=== PATIENT | male | born 1980 | race Caucasian/White ===

== ENCOUNTER 2017-01-28 19:36 | Emergency (ER) | payer BC ==
[2017-01-28 19:57] VITALS: BP 114/71
--- NOTE | 2017-01-28 21:26 | RAD ---
INDICATION: Hematuria, right lower quadrant abdominal pain. COMPARISON: There are no prior studies available for comparison. TECHNIQUE: A CT scan of the abdomen and pelvis was performed without intravenous or oral contrast. Contiguous axial sections were obtained from the lung bases through the symphysis pubis. Images were reconstructed in the coronal and sagittal planes. FINDINGS: The lung bases are clear. No pleural effusion is present. The liver is normal in size without significant focal abnormality on this noncontrast study. No calcific gallstones are seen. The spleen is enlarged spanning 14.9 cm craniocaudad. No focal abnormality is seen. The pancreas appears to be within normal limits. The adrenal glands and kidneys are normal in size. No renal calculi or hydronephrosis is seen. The aorta is normal in caliber without significant calcific plaque. No significant enlarged retroperitoneal lymph nodes are seen. The stomach, small and large bowel appear nondistended. There is a large appendicolith present measuring 1.1 cm in transverse dimension. The appendix is dilated with a thickened oconnell. There is stranding in the surrounding mesenteric fat. These findings would be consistent with acute appendicitis. There is a moderate to large amount retained stool present within the colon. There is no evidence for diverticulitis or colitis. No free intraperitoneal air or fluid is seen. No significant focal osseous abnormality is seen. IMPRESSION: 1. FINDINGS CONSISTENT WITH ACUTE APPENDICITIS. 2. MILD SPLENOMEGALY.
[2017-01-28] MEDS ORDERED: Morphine INJ* 2 MG/ML 1 ML SYRINGE IV ONE (21:48)
[2017-01-28] MEDS ORDERED: Ondansetron INJ* 2 MG/ML VIAL IV ONE (21:49)
[2017-01-28] MEDS ORDERED: NS 0.9% 1000 ML* 1,000 ML BOLUS SCH (22:00)
--- NOTE | 2017-01-28 22:13 | UC ---
Rosa Swift Janilya, scribed for Chandni Rutledge MD on 01/28/17 at 2019 . Abdominal Pain Male HPI - HPI Summary HPI Summary: A 36 y/o male came in to [facility] presenting w/ a gradual onset of intermittent abd pain for a few days starting 01/25/2017. However, for the past 12 hours , the pain has worsened starting at 1400. Pt states the pain is concentrated in the epigastric and suprapubic regions. Pt also reports back pain. Pt denies urinary Sx. A few weeks ago, pt had tenderness in RLQ. Pt also states he has been vomiting. His doctor scanned his gallbladder which was normal. However, pt recovered and went on a trip to [place]. - History of Current Complaint Chief Complaint: EDAbdPain Stated Complaint: ABD PAIN Hx Obtained From: Patient Onset/Duration: Gradual Onset, Lasting Days, Still Present Timing: Intermittent Episodes Lasting: - days Severity Initially: Moderate Severity Currently: Moderate Pain Intensity: 3 Pain Scale Used: 0-10 Numeric Location: Epigastric, Suprapubic Radiates: Yes Radiates to: Back Character: Sharp Aggravating Factor(s):: Nothing Alleviating Factor(s): Nothing Associated Signs And Symptoms: Positive: Back Pain. Negative: Urinary Symptoms , Vomiting, Diarrhea - Risk Factors Testicular Torsion: Negative Cardiac Risk Factors: Negative - Allergies/Home Medications Allergies/Adverse Reactions: Allergies Allergy/AdvReac Type Severity Reaction Status Date / Time No Known Allergies Allergy Verified 10/18/15 21:14 PMH/Surg Hx/FS Hx/Imm Hx Previously Healthy: Yes Endocrine History Of: Denies: Diabetes, Thyroid Disease Cardiovascular History Of: Denies: Cardiac Disorders, Hypertension Respiratory History Of: Denies: COPD, Asthma GI/ History Of: Denies: Ulcer - Surgical History Surgical History: Yes Surgery Procedure, Year, and Place: wisdom teeth extraction - Family History Known Family History: Positive: Cardiac Disease - father, Hypertension - mother and father - Social History Occupation: Employed Full-time Lives: With Family Alcohol Use: Occasionally Substance Use Type: None Smoking Status (MU): Never Smoked Tobacco Review of Systems Constitutional: Negative Skin: Negative Eyes: Negative ENT: Negative Respiratory: Negative Cardiovascular: Negative Gastrointestinal: Negative - pt denies vomiting or diarrhea, Abdominal Pain Genitourinary: Negative Motor: Negative Neurovascular: Negative Musculoskeletal: Arthralgia - pt reports back pain, Myalgia - in the back Neurological: Negative Psychological: Negative All Other Systems Reviewed And Are Negative: Yes Physical Exam Triage Information Reviewed: Yes Appearance: Well-Appearing, Well-Nourished, Pain Distress Vital Signs: Initial Vital Signs Temp 98.5 F 01/28/17 19:49 Pulse 78 01/28/17 19:49 Resp 18 01/28/17 19:49 BP 114/71 01/28/17 19:49 Pulse Ox 98 01/28/17 19:49 Vital Signs Reviewed: Yes Eyes: Positive: Conjunctiva Clear ENT: Positive: Normal ENT inspection, Hearing grossly normal. Negative: Muffled /hoarse voice Neck: Positive: Supple Respiratory: Positive: Lungs clear, Normal breath sounds, No respiratory distress Cardiovascular: Positive: RRR, No Murmur, Pulses Normal, Brisk Capillary Refill Abdomen Description: Positive: Guarding, McBurney's Point Tenderness. Negative : CVA Tenderness (R), CVA Tenderness (L), Distended Bowel Sounds: Positive: Present Musculoskeletal: Positive: Strength Intact, ROM Intact Neurological: Positive: Alert, Muscle Tone Normal Psychological Exam: Normal Skin Exam: Normal Diagnostics - Radiology abd/pel CT Xray Interpretation: Positive (See Comments) - IMPRESSION: 1. FINDINGS CONSISTENT WITH ACUTE APPENDICITIS. 2. MILD SPLENOMEGALY. Radiology Interpretation Completed By: Radiologist Re-Evaluation - Re-Evaluation First Eval Re-Evaluation Time: 20:59 Change: Unchanged Comment: Pt is informed about urinalysis results. Pt has traces of blood in his urine. Consequently, pt will have a CT of his abd/pel to eval for poss kidney stone and RLQ pain. Abd Pain Male Course/Dx - Course Course Of Treatment: Urinalysis showed traces of blood in urine. Consequently, a CT of abd/pel was done. CT showed acute appendicitis. Pt will be transferred to [facility]. Pt was advised to be NPO. - Differential Dx/Clinical Impression Differential Diagnosis/HQI/PQRI: Appendicitis, Gall Bladder Disease, Ureteral Stone, Urinary Tract Infection Provider Diagnoses: acute appendicitis - Physician Notification/Consults Discussed Patient Care With: Dr. Lewis (ED physican) at 2145: discussed pt care and agrees to see pt at [facility] when transferred. BOBBY notified at 2149. Discharge - Discharge Plan Condition: Stable Disposition: TRANS HIGHER LVL OF CARE FAC Discharge Disposition Comment: [facility] Referrals: Lexi Porter MD [Primary Care Provider] - 2 Days The documentation as recorded by the Rosa baker Janilya accurately reflects the service I personally performed and the decisions made by me, Chandni Rutledge MD.
== END 2017-01-28 22:14 | disposition short-term general hospital (02) ==
LOC: UCEAST 19:36
DX: K35.80 Unspecified acute appendicitis (principal); R16.1 Splenomegaly, not elsewhere classified
CPT/HCPCS: 74176; 81003; 96365; 99213; G0463

== ENCOUNTER 2017-01-28 22:26 | Observation (INO) | payer BC ==
[2017-01-28] MEDS ORDERED: NS 0.9% 1000 ML* 1,000 ML IV ONE (22:29)
[2017-01-28 22:41] LABS: Hematocrit 47 % (42-52); Mean Corpuscular HGB Conc 34 g/dl (31-36); Mean Corpuscular Hemoglobin 32 pg (27-31); Mean Corpuscular Volume 93 fL (80-94); Mean Platelet Volume 10 um3 (7.4-10.4); Red Blood Count 5.05 10^6/ul (4.0-5.4); Red Cell Distribution Width 13 % (10.5-15); White Blood Count 10.8 10^3/ul (3.5-10.8)
[2017-01-28 22:56] LABS: Albumin 4.3 g/dL (3.2-5.2); BUN/Creatinine Ratio 14.3 (8-20); C Reactive Protein 11.29 mg/L (< 5.00); Calcium 9.4 mg/dL (8.6-10.3); EGFR African American 103.4 (>60); EGFR Non-African American 80.4 (>60); Globulin 2.9 g/dL (2-4); Magnesium 2.1 mg/dL (1.9-2.7); Potassium 3.7 mmol/L (3.5-5.0); Total Bilirubin 0.6 mg/dL (0.2-1.0); Total Protein 7.2 g/dL (6.4-8.9)
--- NOTE | 2017-01-28 22:59 | ED ---
Elisabeth Swift Matthew, scribed for Romel Lewis MD on 01/28/17 at 2232 . Abdominal Pain/Male - HPI Summary HPI Summary: A 36 y/o male presents to the ED with gradually worsening, intermittent, diffuse abdominal since 01/25/17, which worsened at 14:00 today to constant pain. The pain is currently rated 3/10 in severity. Associated symptoms include back pain. The patient denies urinary symptoms, vomiting, and diarrhea. A few weeks ago the patient c/o of RLQ pain with assoicated vomiting. He went to his PCP at that time, where a gallbladder scanned was performed and returned normal. Afterwards, the patient was able to travel to [place]. - History of Current Complaint Stated Complaint: ABD PAIN Hx Obtained From: Patient Onset/Duration: Gradual Onset, Lasting Days, Still Present Timing: Constant - since 14:00, Intermittent Severity Initially: Mild Severity Currently: Mild Pain Intensity: 3 Pain Scale Used: 0-10 Numeric Location: Diffuse Radiates: No Character: Other: - Aching Aggravating Factor(s): Movement Alleviating Factor(s): Nothing Associated Signs And Symptoms: Positive: Back Pain. Negative: Urinary Symptoms , Nausea, Vomiting, Diarrhea - Allergies/Home Medications Allergies/Adverse Reactions: Allergies Allergy/AdvReac Type Severity Reaction Status Date / Time No Known Allergies Allergy Verified 10/18/15 21:14 PMH/Surg Hx/FS Hx/Imm Hx Endocrine/Hematology History: Denies: Hx Diabetes, Hx Thyroid Disease Cardiovascular History: Denies: Hx Hypertension Respiratory History: Denies: Hx Asthma, Hx Chronic Obstructive Pulmonary Disease (COPD) GI History: Denies: Hx Ulcer - Surgical History Surgery Procedure, Year, and Place: wisdom teeth extraction Infectious Disease History: Denies: Hx Hepatitis, Hx Human Immunodeficiency Virus (HIV), History Other Infectious Disease - Family History Known Family History: Positive: Cardiac Disease - father, Hypertension - mother and father - Social History Alcohol Use: Occasionally Substance Use Type: Reports: None Smoking Status (MU): Never Smoked Tobacco Review of Systems Constitutional: Negative Eyes: Negative ENT: Negative Cardiovascular: Negative Respiratory: Negative Positive: Abdominal Pain - diffuse. Negative: Vomiting, Diarrhea, Nausea Positive: no symptoms reported Positive: Myalgia - back pain Skin: Negative Neurological: Negative Psychological: Normal All Other Systems Reviewed And Are Negative: Yes Physical Exam Triage Information Reviewed: Yes Vital Signs On Initial Exam: Initial Vitals Temp Pulse Resp BP Pulse Ox 98.7 F 80 16 113/70 96 01/28/17 22:35 01/28/17 22:35 01/28/17 22:35 01/28/17 22:35 01/28/17 22:35 Vital Signs Reviewed: Yes Appearance: Positive: Pain Distress - milddiscomfort, Thin Skin: Positive: Warm Head/Face: Positive: Normal Head/Face Inspection Eyes: Positive: ADDISON ENT: Positive: Hearing grossly normal Neck: Positive: Supple Respiratory/Lung Sounds: Positive: Clear to Auscultation, Breath Sounds Present Cardiovascular: Positive: RRR Abdomen Description: Positive: Soft, Guarding, McBurney's Point Tenderness. Negative: No Organomegaly, Distended Bowel Sounds: Positive: Present Musculoskeletal: Positive: Strength/ROM Intact Neurological: Positive: Alert, Oriented to Person Place, Time Psychiatric: Positive: Affect/Mood Appropriate Diagnostics - Vital Signs Vital Signs Temp Pulse Resp BP Pulse Ox 01/28/17 22:38 98.7 F 80 16 113/70 96 01/28/17 22:35 98.7 F 80 16 113/70 96 - Laboratory Lab Results: Lab Results 01/28/17 01/28/17 01/28/17 Range/Units 22:00 22:00 22:00 WBC 10.8 (3.5-10.8) 10^3/ul RBC 5.05 (4.0-5.4) 10^6/ul Hgb 16.0 (14.0-18.0) g/dl Hct 47 (42-52) % MCV 93 (80-94) fL MCH 32 H (27-31) pg MCHC 34 (31-36) g/dl RDW 13 (10.5-15) % Plt Count 173 (150-450) 10^3/ul MPV 10 (7.4-10.4) um3 Neut % (Auto) 66.7 (38-83) % Lymph % (Auto) 23.9 L (25-47) % [place] % (Auto) 8.0 (1-9) % Eos % (Auto) 1.0 (0-6) % Baso % (Auto) 0.4 (0-2) % Absolute Neuts (auto) 7.2 (1.5-7.7) 10^3/ul Absolute Lymphs (auto) 2.6 (1.0-4.8) 10^3/ul Absolute Monos (auto) 0.9 H (0-0.8) 10^3/ul Absolute Eos (auto) 0.1 (0-0.6) 10^3/ul Absolute Basos (auto) 0 (0-0.2) 10^3/ul Absolute Nucleated RBC 0.01 10^3/ul Nucleated RBC % 0.1 Sodium 137 (133-145) mmol/L Potassium 3.7 (3.5-5.0) mmol/L Chloride 100 L (101-111) mmol/L Carbon Dioxide 32 (22-32) mmol/L Anion Gap 5 (2-11) mmol/L BUN 15 (6-24) mg/dL Creatinine 1.05 (0.67-1.17) mg/dL Est GFR ( Amer) 103.4 (>60) Est GFR (Non-Af Amer) 80.4 (>60) BUN/Creatinine Ratio 14.3 (8-20) Glucose 96 (70-100) mg/dL Lactic Acid 0.7 (0.5-2.0) mmol/L Calcium 9.4 (8.6-10.3) mg/dL Magnesium 2.1 (1.9-2.7) mg/dL Total Bilirubin 0.60 (0.2-1.0) mg/dL AST 18 (13-39) U/L ALT 15 (7-52) U/L Alkaline Phosphatase 62 (34-104) U/L C-Reactive Protein 11.29 H (< 5.00) mg/L Total Protein 7.2 (6.4-8.9) g/dL Albumin 4.3 (3.2-5.2) g/dL Globulin 2.9 (2-4) g/dL Albumin/Globulin Ratio 1.5 (1-3) Lipase 16 (11.0-82.0) U/L Result Diagrams: 01/28/17 22:00 01/28/17 22:00 Lab Statement: Any lab studies that have been ordered have been reviewed, and results considered in the medical decision making process. Abdominal Pain Fem Course/Dx - Course Assessment/Plan: A 36 y/o male presents to the ED with gradually worsening, intermittent, diffuse abdominal since 01/25/17, which worsened at 14:00 today to constant pain. The pain is currently rated 3/10 in severity. Associated symptoms include back pain. The patient denies urinary symptoms, vomiting, and diarrhea. Labs were reviewed. CT from [facility] showed acute appendicitis. Discussed the case with Dr. Briggs who will admit the patient into her care. - Diagnoses Provider Diagnoses: Appendicitis - Provider Notifications Discussed Care Of Patient With: Dr. Briggs (Surgery) at 22:38 -- Notified of patient's history and will come to see the patient. Instructed by Provider To: Admit As Inpatient Discharge - Discharge Plan Condition: Fair Disposition: ADMITTED TO [facility] The documentation as recorded by the Elisabeth baker Matthew accurately reflects the service I personally performed and the decisions made by me, Romel Lewis MD.
--- NOTE | 2017-01-28 23:26 | HP ---
H&P (Free Text) History and Physical: Surgery H & P Asked by Dr. Lewis to evaluate a pt. with abd. pain and a CT suggestive of appendicitis. Mr. Callahan is a 36 y.o. male who reports he began to feel a "discomfort" in the abd. 3 days ago. This waxed and waned till tonight when he felt it more specifically in the low abd. and felt it with movement. He denies fever, nausea, vomiting, diarrhea, or constipation. He had some loss of appetite tonight. He denies dysuria. He went to [facility] and had a CT looking for an explanation of blood in the urine and appendicitis was found. PMHx: denies Meds: none NKDA ROS: neg. FH: colon CA, pancreatic CA SH: neg. tob., occ EtOH, neg. IVDA PE: general: WDWN male in NAD Vital Signs 01/28/17 01/28/17 22:35 22:38 Temperature 98.7 F 98.7 F Pulse Rate 80 80 Respiratory 16 16 Rate Blood Pressure 113/70 113/70 (mmHg) O2 Sat by Pulse 96 96 Oximetry HEENT: Anicteric sclerae, moist oral mucosa, neg. cervical adenopathy lungs: clear to ausc. heart: reg. abd: good BS, soft, tender in RLQ to deep palpation, no guarding, rebound. Neg. CVAT ext: trace edema Laboratory Results - last 24 hr 01/28/17 01/28/17 01/28/17 22:00 22:00 22:00 WBC 10.8 RBC 5.05 Hgb 16.0 Hct 47 MCV 93 MCH 32 H MCHC 34 RDW 13 Plt Count 173 MPV 10 Neut % (Auto) 66.7 Lymph % (Auto) 23.9 L [place] % (Auto) 8.0 Eos % (Auto) 1.0 Baso % (Auto) 0.4 Absolute Neuts (auto) 7.2 Absolute Lymphs (auto) 2.6 Absolute Monos (auto) 0.9 H Absolute Eos (auto) 0.1 Absolute Basos (auto) 0 Absolute Nucleated RBC 0.01 Nucleated RBC % 0.1 Sodium 137 Potassium 3.7 Chloride 100 L Carbon Dioxide 32 Anion Gap 5 BUN 15 Creatinine 1.05 Est GFR ( Amer) 103.4 Est GFR (Non-Af Amer) 80.4 BUN/Creatinine Ratio 14.3 Glucose 96 Lactic Acid 0.7 Calcium 9.4 Magnesium 2.1 Total Bilirubin 0.60 AST 18 ALT 15 Alkaline Phosphatase 62 C-Reactive Protein 11.29 H Total Protein 7.2 Albumin 4.3 Globulin 2.9 Albumin/Globulin Ratio 1.5 Lipase 16 A/P: Probable appendicitis. will admit, hydrate, provide abx, and plan OR in AM for laparoscopic appendectomy. CLFoster
[2017-01-28] MEDS ORDERED: Ondansetron INJ* 2 MG/ML VIAL IV PRN (23:28)
[2017-01-28] MEDS ORDERED: Morphine INJ* 2 MG/ML 1 ML SYRINGE IV PRN (23:29)
[2017-01-29] MEDS ORDERED: Piperac/Tazob 3.375 gm in NS* 3.375 GM/100 ML BAG IVPB ONE
[2017-01-29] MEDS: D5W 1/2 NS KCl 20 Meq 1000 ML* 1,000 ML IV SCH ×4 (00:46→22:26)
[2017-01-29] MEDS ORDERED: Morphine INJ* 2 MG/ML 1 ML SYRINGE ONE (04:55)
[2017-01-29] MEDS ORDERED: Morphine INJ* 2 MG/ML 1 ML SYRINGE IV PRN (05:37)
[2017-01-29] MEDS: Piperac/Tazob 3.375 gm in NS* 3.375 GM/100 ML BAG IVPB SCH ×3 (05:52→19:53)
--- NOTE | 2017-01-29 09:10 | PN ---
Progress Note - Progress Note SOAP: Subjective: Comfortable with some pain meds Still with persistent right lower abdominal pain Objective: Temp Pulse Resp BP Pulse Ox 98.0 F 74 16 121/76 96 01/29/17 07:50 01/29/17 07:50 01/29/17 07:52 01/29/17 07:50 01/29/17 07:50 PEX: Comfortable Lungs are clear Abd is soft and non-distended. No prior incisions. No hernias. Bowel sounds are present but decreased throughout. There is tenderness in the right lower quadrant with some guarding. No peritoneal signs or masses. Labs and CT reviewed-nl WBC, CT shows a large appendicolith with dilated appendix with some surrounding inflammation consistent with appendicitis. No other acute findings noted Assessment: Acute appendicitis History reviewed Plan: Laparoscopic appendectomy today. I discussed procedure the history, physical exam and CT scan results and I recommend a laparoscopic appendectomy today. The procedure was discussed with the patient and the risks of, but not limited to, of bleeding, infection, abscess, injury to peritoneal and retroperitoneal organs, the possibility of an open procedure, risks of anesthesia were all explained. In addition, hospital stay and recovery times were discussed. We also discussed non-operative management with IV and oral antibiotics and I do not recommend this approach with the large appendicolith and dilated appendix and he agrees. Will proceed later this morning.
[2017-01-29] MEDS ORDERED: Bupivacaine 0.25% EPI 200,000* 30 ML SDV ONE (10:35)
[2017-01-29] MEDS ORDERED: Midazolam* 1 MG/ML 2 ML VIAL (2 MG) ONE (10:37)
[2017-01-29] MEDS ORDERED: Lidocaine 2% PF * 5 ML VIAL ONE (10:37)
[2017-01-29] MEDS ORDERED: fentaNYL* 50 MCG/ML 2 ML VIAL (100 MCG VIAL) ONE ×4 (10:37→13:17)
[2017-01-29] MEDS ORDERED: Propofol* 10 MG/ML 20 ML BTL IV PUSH ONE (10:37)
[2017-01-29] MEDS ORDERED: Rocuronium* 10 MG/ML VIAL ONE ×2 (10:38→12:15)
[2017-01-29] MEDS ORDERED: Neostigmine Methylsulfate* 2 MG/2 ML SYRINGE ONE (11:35)
[2017-01-29] MEDS ORDERED: Glycopyrrolate IV* 0.2 MG/ML 1 ML VIAL ONE (11:35)
[2017-01-29] MEDS: fentaNYL* 50 MCG/ML 2 ML VIAL (100 MCG VIAL) IV PRN ×2 (13:19→13:42)
--- NOTE | 2017-01-29 13:26 | SURGPN ---
Brief Operative Note - Surgery Procedures: OPERATIVE REPORT PRE-OP: Acute appendicitis POST-OP: Same PROCEDURE: Laparoscopic appendectomy SURGEON: MD Rodrigo ANESTHESIA: General/local Dr. Troncoso ASST: none IVF: 1 liter of crystalloid EBL: min SPECIMEN: Appendix DRAIN: none WOUND CLASS: 3 COMPLICATIONS: none TO PACU
[2017-01-29] MEDS ORDERED: oxyCODONE/Acetamin 5/325 MG* TAB PO PRN ×2 (13:27→13:29)
[2017-01-29] MEDS ORDERED: oxyCODONE TAB* 5 MG TAB PO PRN (13:49)
[2017-01-29] MEDS ORDERED: Ketorolac INJ* 30 MG/ML 1 ML VIAL ONE (14:15)
[2017-01-29] MEDS: Ketorolac INJ* 30 MG/ML 1 ML VIAL IV PUSH PRN (14:17)
[2017-01-29] MEDS: Heparin VIAL(*) 5000 UNITS/ML VIAL (FIVE THOUSAND) SUBCUT SCH ×2 (14:56→22:22)
[2017-01-29] MEDS ORDERED: Acetaminophen TAB* 325 MG ONE (17:04)
[2017-01-29] MEDS ORDERED: Acetaminophen TAB* 325 MG PO PRN (17:07)
--- NOTE | 2017-01-30 01:18 | OP ---
DATE OF OPERATION: 01/29/17 - ROOM #333 DATE OF : 82 SURGEON: Venu Wallace MD PHYSICIAN GENERAL PRACTICE: None. ANESTHESIOLOGIST: Dr. Galindo. ANESTHESIA: General with local. PRE-OP DIAGNOSIS: Acute appendicitis. POST-OP DIAGNOSIS: Acute appendicitis. OPERATIVE PROCEDURE: Laparoscopic appendectomy. ESTIMATED BLOOD LOSS: Minimal. WOUND CLASSIFICATION: Three. COMPLICATIONS: None. DRAINS: None. SPECIMEN: Appendix. FINDINGS: The patient had a rather large appendicolith within the lumen of the appendix and chronic inflammatory response that was adherent to the retroperitoneum. No evidence of perforation or free intraabdominal fluid. BRIEF HISTORY: Mr. Howard Callahan is a 36-year-old gentleman who presented to the emergency room last night acutely after being seen [facility]. He had had some abdominal pain since the weekend in the right lower quadrant and was associated with some anorexia with no nausea, vomiting, fevers, shakes or chills. He had tenderness in the right lower quadrant. He also gives a history of over the last several weeks having intermittent discomfort in the right mid and lower abdomen. This was severe enough almost a month ago that he did see his primary care provider, Dr. Porter, who underwent labs and an ultrasound of the gallbladder which was unremarkable. He subsequently went to [place] on family vacation, did fine and according to his only intermittently since he has been back had complained of some mild discomfort until the past weekend. In the emergency room, he was noted to have a normal white blood cell count with no fever. He had some mild tenderness in the right lower quadrant without peritoneal irritation. I did review the CT scan of the abdomen and pelvis and this does show findings consistent with acute appendicitis with a very large appendicolith which is calcified with a distended distal appendix with appendiceal inflammation. There was no evidence of abscess, or extraluminal fluid. After reviewing the history, physical exam and the workup, I recommend that he undergo an appendectomy. I discussed the procedure with the patient and his and the risks are but not limited to bleeding, infection, intraabdominal abscess formation, injury to peritoneal and retroperitoneal structures, possibility of an open procedure, risk of general anesthesia, recovery times and hospital stays were all discussed. In addition, possibility of an open procedure was explained. We also discussed nonoperative management with IV antibiotics. However, in this situation with a large appendicolith and the possible chronic nature of the inflammation, I did not recommend this approach. DESCRIPTION OF PROCEDURE: Written informed consent was obtained, IV antibiotics were administered and the abdomen was marked with indelible ink. The patient was taken to the operating room, placed in the supine position. Sequential compression devices and a warming blanket were applied. Anesthesia was administered. The abdomen was prepped and draped in the usual sterile fashion. Time-out verification was completed. Initially, a small transverse incision was made just above the umbilicus to midline, and the peritoneal cavity was entered under direct vision. A 12-mm blunt port was inserted and the abdomen was insufflated to 15 mmHg. Under direct vision, a 5 mm port was placed in the left lower abdominal wall and a second 5 mm port was placed in the suprapubic position. Upon entering the abdomen, there was no evidence of peritonitis, fluid or generalized inflammation. Terminal ileum appeared to be normal as well as the cecum. The patient was placed in Trendelenburg position and rolled to the left. We were able to displace the terminal ileum out of the left lower quadrant and here there was an inflamed, firm, almost gangrenous appearing mass adherent to the retro-peritoneum and laterally which was quite firm and difficult to grasp with the instruments. I was able to lift this up bluntly and using the suction sba business development officer, bluntly peeled what I felt was the appendix off the retroperitoneum and lateral peritoneal attachments working distally to proximally. It appeared that the appendix had curled up underneath itself and once again, I was very distended and firm and that was consistent with the findings on CT scan where there was obviously a very large appendicolith. I was able to then deliver this up into a better view and identify the very edematous and indurated mesentery and this was taken sequentially from distal appendix to more proximal appendix using the LigaSure device and hemostasis was assured in this manner. As we dissected more proximal, it was apparent that this terminal ileum was somewhat adherent and this was taken down also with a LigaSure device. I was able to identify the base of the cecum and the appendix at this point appeared to be more viable, although it was still somewhat dilated and by mobilizing some of the lateral attachments in the cecum using sharp dissection, I was able to deliver up the base of the cecum over the appendix at the appendiceal junction and this appeared to be really without evidence of inflammation, soft and supple. With this in mind, I placed a thomas load of a 60 mm stapler well down under the cecum to assure myself that this was all healthy normal tissue which was fired. The appendix was then removed. The staple line was intact without bleeding and appeared to be with good viable tissue. The appendix was placed in an EndoCatch bag. It was difficult due to its size and induration to remove through the small umbilical incision. I did pull this out in pieces from the bag as I did not want to make the incision bigger. Once this was complete, the surgical site was evaluated. Hemostasis was assured. Staple line was intact. I used a large amount of irrigation in the right lower quadrant and pelvis until clear. I do not feel the drain was indicated. All ports removed under the direct vision of the camera. The umbilical fascia was closed with interrupted 0 Polysorb suture. Skin at all 3 incisions was approximated with subcuticular 4-0 Polysorb suture. Steri-Strips were applied. The patient tolerated the procedure well and was taken to recovery room in stable condition. CC: [facility]; Dr. Lexi Porter * [id number]/[facility] #: [id number] NIKIA
[2017-01-30] MEDS: Piperac/Tazob 3.375 gm in NS* 3.375 GM/100 ML BAG IVPB SCH ×2 (03:57→12:02)
[2017-01-30] MEDS: D5W 1/2 NS KCl 20 Meq 1000 ML* 1,000 ML IV SCH (04:49)
[2017-01-30] MEDS: Heparin VIAL(*) 5000 UNITS/ML VIAL (FIVE THOUSAND) SUBCUT SCH ×2 (06:08→13:35)
--- NOTE | 2017-01-30 08:38 | PN ---
Progress Note - Progress Note SOAP: Subjective: Had some nausea last night-vomited once but feels better this morning and has appetite. No flatus Pain adequately controlled. Objective: Temp Pulse Resp BP Pulse Ox 98.2 F 78 18 117/86 96 01/30/17 07:29 01/30/17 07:29 01/30/17 07:53 01/30/17 07:29 01/30/17 07:53 Intake & Output 01/28/17 01/29/17 01/30/17 01/31/17 06:59 06:59 06:59 06:59 Intake Total 2165 3499 Output Total 2725 900 Balance 2165 774 -900 Weight 216 lb Intake: IV Fluids 2165 2759 ABX - ZOSYN 71 D5W 1/2 NS 20 meq KCL 994 199 LR 600 IVPB 100 Oral 0 640 Output: Urine 2325 900 Emesis 400 Other: # Bowel Movements 0 PEX: Comfortable Lungs are clear Abd is soft and non-distended. Bowel sounds are present and are normoactive. Incisions are clean and dry. Ext without edema Assessment: POD # 1 s/p lap appendectomy nausea-improved Plan: Advance diet Decrease IVF Hopeful d/c later today if he tolerates po No antibiotics needed. Office follow up
[2017-01-30] MEDS ORDERED: NS 0.9% 1000 ML* 1,000 ML IV SCH (08:45)
[2017-01-30] MEDS: Ketorolac INJ* 30 MG/ML 1 ML VIAL IV PUSH PRN (10:47)
[2017-01-30 12:53] VITALS: BP 115/80
--- NOTE | 2017-01-30 15:23 | PN ---
Progress Note - Progress Note SOAP: Subjective: Doing very well, no complaints. Tolerated regular diet for lunch, denies any N/ V or pain. Wants to go home. Objective: Awake and alert, comfortable. VSS, afebrile Abdomen soft, NT, ND. Incisions C/D/I. Assessment: s/p laparoscopic appendectomy, doing well. Plan: Discharge to home. A script for Percocet was sent to his pharmacy D/C instructions given F/U as outpatient next week.
--- NOTE | 2017-01-31 06:30 | DS ---
DISCHARGE SUMMARY: DATE OF ADMISSION: 01/28/17 DATE OF DISCHARGE: 01/30/17 PATIENT OF: Courtney Briggs MD REFERRED TO: Venu Wallace MD ADMITTING PHYSICIAN: Courtney Briggs MD (DICTATED BY ROXI CARABALLO) CONSULTING PHYSICIAN: Venu Wallace MD ADMISSION DIAGNOSIS: Acute appendicitis. DISCHARGE DIAGNOSIS: Acute appendicitis. PROCEDURE: Laparoscopic appendectomy on 01/29/17. BRIEF MEDICAL HISTORY: Mr. Callahan is a pleasant 36-year-old gentleman who presented to the emergency room in the late evening hours of 01/28/17 with complaints of worsening abdominal pain. He described a generalized discomfort in the abdomen for the past 3 days that has been waxed and waned till the evening when he felt more intense pains, specifically in the lower abdomen. He denied any other associated symptoms. He had never had any similar pain in the past. He also reports associated loss of appetite, but denied any nausea, vomiting, or changes in the bowel habits. [facility] and urinalysis showed microhematuria; for which, the patient was sent to the ED to evaluate for a kidney stone. He had a CT scan of the abdomen and pelvis that revealed findings consistent with acute appendicitis; for which, we were asked to see the patient for further evaluation and to discuss possible appendectomy. HOSPITAL COURSE: The patient was seen by Dr. Briggs on the evening of . He was afebrile and he showed no evidence of significant leukocytosis, but his exam revealed some tenderness at the right lower quadrant with deep palpation. Given the findings of the CT scan and his consistent abdominal pain , the patient was admitted for IV antibiotics and to discuss laparoscopic appendectomy on the following day. The patient was seen on the following day by Dr. Wallace, who reevaluated the patient and the decision was made for him to go to the operating room to undergo a laparoscopic appendectomy. The patient was taken to the operating suite on 01/29/17, where he underwent a laparoscopic appendectomy that was uneventful. After recovery, the patient was transferred back to the surgical floor for observation overnight. His immediate postop period was essentially unremarkable. He had mild incisional tenderness that was well tolerated using pain medicine as needed. He was started on clear liquid diet that he tolerated well and his diet was advanced on the following morning to regular. He remained afebrile and he was ambulatory out of bed in a stable condition. He received a 24-hour coverage of IV antibiotics and on afternoon hours of 01/30/17, he was ready to be discharged home. All the discharge instructions given to him in a verbal and written format and he will be seen in the office next week for a followup. PROBLEM LIST: 1. Abdominal pain. 2. Acute appendicitis, status post laparoscopic appendectomy on 01/29/17. DISCHARGE MEDICATIONS: Include: 1. Ibuprofen 600 mg q.6 hours as needed for pain. 2. Percocet 5/325 mg 1 to 2 tablets q.6 hours p.r.n. for pain. ROXI CARABALLO [id number] #: [id number] MTDD
== END 2017-01-30 15:45 | disposition home or self-care (01) ==
LOC: ED 22:26 → SSU 23:26
PROVIDERS: ADMIT Surgery; ATTEND Surgery
DX: K35.80 Unspecified acute appendicitis (principal); K36 Other appendicitis
CPT/HCPCS: 36415; 80053; 83605; 83690; 83735; 85025; 86140; 88304; 94760; 96374; 96375; 99283; A9270-GY; G0378; J1644; J1885; J2250; J2270; J2405; J2543; J2704; J3010